=== PATIENT | male | born 1965 | race Hispanic/Latino ===

== ENCOUNTER → 2020-08-27 | Day surgery (SDC) | payer BC ==
[2020-08-24 11:15] LABS: BASOPHILS # (AUTO) 0.1 (0.0-0.1); BASOPHILS % 0.5 % (0.0-1.0); EOSINOPHILS # (AUTO) 0.3 (0.0-0.4); EOSINOPHILS % 3.4 % (0.0-6.0); HEMOGLOBIN 15.3 g/dL (14.0-18.0); LYMPHOCYTES # (AUTO) 3.3 (1.0-3.2); LYMPHOCYTES % 33.4 % (18.0-39.1); MEAN CORPUSCULAR HEMOGLOBIN 30.2 pg (28-32); MEAN CORPUSCULAR HGB CONC 33.3 g/dL (31-35); MEAN CORPUSCULAR VOLUME 90.9 fL (81-99); MONOCYTES # (AUTO) 0.8 (0.2-0.8); MONOCYTES % 7.9 % (4.4-11.3); NEUTROPHILS # (AUTO) 5.3 (2.1-6.9); NEUTROPHILS % 53.9 % (38.7-80.0); PLATELET COUNT 265 x10e3/uL (140-360); RED BLOOD COUNT 5.06 x10e6/uL (4.3-5.7); RED CELL DISTRIBUTION WIDTH 13.2 % (11.7-14.4)
[2020-08-24 11:36] LABS: BLOOD UREA NITROGEN 11 mg/dL (7-26); BUN/CREATININE RATIO 14 (6-25); CALCIUM 9.3 mg/dL (8.4-10.2); CARBON DIOXIDE 28 mmol/L (22-29); CHLORIDE 103 mmol/L (98-107); EST GLOMERULAR FILTRATION RATE > 60 ML/MIN (60-); GLUCOSE 100 mg/dL (74-118); SODIUM 139 mmol/L (136-145)
[~2020-08-27] MED LIST: BUPIVACAINE 0.25% 30ML SDV ONE; BUPIVACAINE LIPOSOME/PF 266 MG/20 ML IJ ONE; CEFAZOLIN SOD 1 GM/NS 50ML 50 ML IV ONE; DESFLURANE 240 ML BTL INH ONE; DEXAMETHASONE SOD PHOS INJ 4 MG/ML VIAL ONE; FENTANYL CITRATE/PF 100MCG/2 ML INJ ONE; GLYCOPYRROLATE INJ 0.2 MG/ML VIAL ONE; HYDROCODONE/APAP 7.5MG-325MG 1 EA TAB ONE; KETOROLAC TROMETHAMINE 30 MG/ML VIAL ONE; MIDAZOLAM HCL 2 MG/2 ML VIAL ONE; ONDANSETRON HCL INJ 2MG/ML 2ML 2 MG/ML VIAL ONE; PROPOFOL IV EMULSION 10 MG/ML 20 ML VIAL ONE; ROCURONIUM BROMIDE 10 MG/ML 5ML VIAL IV ONE
[2020-08-27 11:50] VITALS: BP 121/82
--- NOTE | 2020-08-27 11:50 | Operative Report ---
DATE OF PROCEDURE: 08/27/2020 SURGEON: Nimesh Cortez MD PREOPERATIVE DIAGNOSES: Periumbilical ventral hernia, obesity. POSTOPERATIVE DIAGNOSES: Periumbilical ventral hernia, obesity. PROCEDURE PERFORMED: Repair of a periumbilical ventral hernia with the PROCEED ventral patch, medium size in the intraabdominal location. ANESTHESIA: General. ESTIMATED BLOOD LOSS: Minimal. DRAINS: None. COMPLICATIONS: None. INDICATION AND FINDINGS: The patient is an obese 54-year-old male complains of periumbilical pain and both for several years, increasing intraoperative panting. The patient had a periumbilical hernia with herniation of properitoneal fat and bowel through a 2 cm umbilical defect. The PROCEED ventral patch, medium size was placed in the intraabdominal location. After the sac was excised and colectomy was performed as part of the procedure because he had redundant thin skin. DESCRIPTION OF PROCEDURE: With the patient lying on the operative table in the supine position after administration of general anesthesia, he was prepped and draped for repair of ventral hernia. An elliptical incision was made around the umbilicus and dissected down through the skin, subcutaneous tissue until the hernia sac was identified. It was dissected free from the surrounding tissues and the fascia, and then excised. We then opened the hernia sac. At this point, it was empty. We excised the excess sac. We secured the excess sac to the periphery of the defect with 3-0 Vicryl, and then we deployed the ULTRAPRO Hernia System, we deployed then the PROCEED ventral patch medium-sized mesh lying flat in the preperitoneal space. The mesh was secured to the local tissues through the straps with 2 Ethibond, and superiorly or inferiorly with 2 Ethibond suture. The mesh was then secured in four different quadrants to prevent rotation. At this point, we went ahead and irrigated the wound copiously. We took great care to ascertain that there was no interposition of tissue between the mesh and the abdominal wall, and none was seen. We gave him a local block with 0.25% Marcaine with epinephrine including the fascia and then the skin. We irrigated the wound after the sponge and instrument count was pronounced correct several times. The wound was closed in layers using 2-0 Vicryl for the subcutaneous tissues, and they were also used to recreate the umbilical dimple and the soft tissues were also closed with 2-0 Vicryl. The skin was closed with vertical mattress 3-0 silk. Sterile dressing was applied. The patient tolerated the procedure well, was taken to recovery room in stable condition. MD LON Casper/CARLOTTA /[id number]
== END | disposition home or self-care (01) ==
LOC: OR 07:28
PROVIDERS: ATTEND Surgery
DX: K43.9 Ventral hernia without obstruction or gangrene (principal); E66.9 Obesity, unspecified; K21.9 Gastro-esophageal reflux disease without esophagitis; Z01.810 Encounter for preprocedural cardiovascular examination; Z01.812 Encounter for preprocedural laboratory examination; Z20.828 Contact with and (suspected) exposure to other viral communicable diseases
CPT/HCPCS: 36415; 49560; 49568; 80048; 85025; 88302; 93005; C1781; J0690; J1100; J1885; J2250; J2405; J2704; J3010; U0002